=== PATIENT | male | born 1935 | race Caucasian/White ===

== ENCOUNTER 2019-06-07 07:37 | Day surgery (SDC) | payer MEDICARE, BC ==
[2019-06-07] VITALS (12 sets, daily range): BP systolic 96–140; BP diastolic 51–85; PULSE 52–67; TEMP 97.9
[~2019-06-07] VITALS: Ht 177.8 cm; Wt 88.0 kg
[~2019-06-07 07:37] MED LIST: ASPIRIN 32325 MG/TAB PO; AVODART 0.5MG0.5 MG PO; AVODART0.5 MG PO; CO ENZYME Q-1050 MG PO; GLUCOSAMINE & C1 CA1 PO; GLUCOSAMINE CHO1 CAP PO; LEVOTHROID0.125 MG PO; NITROQUICK0.4 MG SL; OMEGA 31000 MG PO; PLAVIX 75MG TAB75 MG PO; PUMPKIN SEED PO; SAW PALMETTO160 M1 PO; SIMVASTATIN20 MG PO; TOPROL XL 25MG25 MG PO; TOPROL XL25 MG PO; TYLENOL PM EXTR1 TA1 PO; VITAMIN C500 MG PO; ZESTRIL 5MG5 MG PO; ZINC25 MG PO; ZOCOR 20MG20 MG PO; ZOCOR 40MG40 MG PO
[2019-06-07 08:41] LABS: HEMOGLOBIN 11.3 g/dl (13.5-18.0); MEAN CELL VOLUME 91 fl (80.0-100.0); MEAN CORPUSCULAR HEMOGLOBIN 31 pg (27.0-31.0); MEAN CORPUSCULAR HGB CONC 34 g/dl (33.0-37.0); MEAN PLATELET VOLUME 9.8 fl (7.4-10.4); PLATELET COUNT 141 K/mm3 (130-400); REDCELL DISTRIBUTION WIDTH-CV 13.1 % (11.5-14.5)
[2019-06-07 08:43] LABS: HEMATOCRIT 32.9 % (42.0-52.0)
[2019-06-07 08:50] LABS: INR 1.1 (0.8-3.0); PROTHROMBIN TIME 13.1 SECONDS (9.7-12.8)
[2019-06-07 08:53] LABS: PARTIAL THROMBOPLASTIN TIME 31.8 SECONDS (26.0-37.0)
[2019-06-07] MEDS ORDERED: ASPIRIN E.C. 8181 MG PO (08:54)
[2019-06-07] MEDS ORDERED: SYNTHROID0.175 MG PO (08:55)
[2019-06-07] MEDS ORDERED: FISH OIL 1000MG1 CAP PO (08:56)
[2019-06-07 08:57] LABS: CALCIUM 8.3 mg/dL (8.4-10.2); CREATININE, serum 1.21 (0.66-1.25)
[2019-06-07] MEDS ORDERED: FLOMAX 0.40.4 MG/CAP PO (08:57)
[2019-06-07] MEDS ORDERED: VITAMIN D 1001000 IU PO (08:57)
[2019-06-07] MEDS ORDERED: ISORDIL TITRADO30 MG PO (08:58)
[2019-06-07] MEDS ORDERED: VITAMIN B12 1541 TAB PO (08:58)
--- NOTE | 2019-06-07 09:23 | NUR ---
SEE MERGE FOR MEDICATION ADMINISTATION TIMES AND INTRA/POST PROCEDURE SEDATION ASSESSMENTS.
--- NOTE | 2019-06-07 10:20 | NUR ---
pt recieved via bed to eu 12 from photo lab manager. Pt is alert and orientated x3, pt has TR band on with scan blood around TR band. call light in reach. family at bedside, takes water. no c/o
[2019-06-07] MEDS ORDERED: RANEXA 500MG T500 MG PO (10:54)
--- NOTE | 2019-06-07 11:05 | NUR ---
pt con't same, no c/o, uses urinal 300cc
--- NOTE | 2019-06-07 12:00 | NUR ---
pt sits up in bed and eats
--- NOTE | 2019-06-07 12:45 | NUR ---
band loosed 2cc, then in 10 min another 2cc, had oozing, 4cc replaced in band. will con't to monitor for 30 min. pt has no c/o, visits with Daughter
--- NOTE | 2019-06-07 13:30 | NUR ---
RELEASED TR BAND 2CC AT 1330, 2CC AT 1340 AND 2CC AT 1350, NO BLEEDING, AREA CLEANSED AND BANDAID ON WITH COBAN SUPPORT. PT UP TO B/R VOIDED, REVIEWED DISCHARGE INST. WITH PT AND DAUGHTER ON CARE OF SITE, ACTIVITY, FOLLOWUP APPT, NEW RX TO BE PICKED UP AT PHARMACY WITH VERBAL UNDERSTANDING.
--- NOTE | 2019-06-07 14:30 | NUR ---
[facility] INTACT, PT UP IN ROOM DRESSED, DISCHARGED VIA W/C TO CAR WITH DAUGHTER
== END 2019-06-07 14:30 | disposition home or self-care (01) ==
LOC: COL.CAR 07:37
PROVIDERS: Internal Medicine Cardiovascular Disease
DX: I25.10 Atherosclerotic heart disease of native coronary artery without angina pectoris (principal); R94.39 Abnormal result of other cardiovascular function study; I10 Essential (primary) hypertension; I25.2 Old myocardial infarction; E07.9 Disorder of thyroid, unspecified; E78.5 Hyperlipidemia, unspecified; Z85.038 Personal history of other malignant neoplasm of large intestine
CPT/HCPCS: J1644; J2250; J3010; Q9967

== ENCOUNTER → 2019-06-15 | Outpatient (CLI) | payer MEDICARE, BC ==
[~2019-06-15] MED LIST changes: +ASPIRIN E.C. 8181 MG PO; +FISH OIL 1000MG1 CAP PO; +FLOMAX 0.40.4 MG/CAP PO; +ISORDIL TITRADO30 MG PO; +RANEXA 500MG T500 MG PO; +SYNTHROID0.175 MG PO; +VITAMIN B12 1541 TAB PO; +VITAMIN D 1001000 IU PO
[2019-06-15 10:38] LABS: BASO % 0.2 % (0.0-2.0); EOS # 0.1 (0.0-0.7); EOS % 2.3 % (0-4.0); GRAN # 2.5 (1.4-6.5); GRAN % 47.7 % (42.2-75.2); HEMATOCRIT 38.5 % (42.0-52.0); LYMPH # 1.8 (1.2-3.4); MEAN CELL VOLUME 92 fl (80.0-100.0); MEAN CORPUSCULAR HEMOGLOBIN 31 pg (27.0-31.0); MEAN CORPUSCULAR HGB CONC 34 g/dl (33.0-37.0); MEAN PLATELET VOLUME 10.4 fl (7.4-10.4); MONO # 0.8 (0.1-0.6); MONO % 14.6 % (1.7-9.3); PLATELET COUNT 154 K/mm3 (130-400); RED BLOOD COUNT 4.18 M/mm3 (4.20-5.60); REDCELL DISTRIBUTION WIDTH-CV 13.1 % (11.5-14.5)
[2019-06-15 10:53] LABS: ALANINE AMINOTRANSFERASE 22 U/L (4-49); ALBUMIN 4.1 gm/dL (3.5-5.0); ALKALINE PHOSPHATASE 55 U/L (50-136); ANION GAP 11 mmol/L (7-16); AST,SGOT 26 U/L (15-37); BILIRUBIN,TOTAL 0.8 mg/dL (0.0-1.0); BLOOD UREA NITROGEN 23 mg/dL (9-20); CALCIUM 8.7 mg/dL (8.4-10.2); CARBON DIOXIDE 24 mmol/L (22-30); CHLORIDE 106 mmol/L (98-107); CREATININE, serum 1.48 (0.66-1.25); GLUCOSE 94 mg/dL (74-106); POTASSIUM 4.1 mmol/L (3.4-5.0); SODIUM 142 mmol/L (137-145); TOTAL PROTEIN 6.8 gm/dL (6.4-8.2)
[2019-06-15 10:54] LABS: C-REACTIVE PROTEIN < 0.5 mg/dL (0.0-0.9)
[2019-06-15 11:11] LABS: ERYTHROCYTE SEDIMENTATION RATE 4 mm/hr (0-30)
[2019-06-15 11:21] LABS: THYROID STIMULATING HORMONE 0.052 uIU/mL (0.465-4.680)
== END ==
LOC: ZCOL.LAB 10:21
PROVIDERS: Internal Medicine
DX: E03.9 Hypothyroidism, unspecified (principal); D50.0 Iron deficiency anemia secondary to blood loss (chronic)

== ENCOUNTER 2019-10-01 10:52 | Emergency (ER) | payer MEDICARE, BC ==
[~2019-10-01] VITALS: Ht 177.8 cm; Wt 86.4 kg
[~2019-10-01 10:52] MED LIST changes: +SYNTHROID0.125 MG/T PO; -SYNTHROID0.175 MG PO
[2019-10-01 11:07] VITALS: TEMP 97.9
[2019-10-01 11:45] LABS: BASO % 0.2 % (0.0-2.0); EOS # 0.1 (0.0-0.7); EOS % 1.3 % (0-4.0); GRAN # 2.7 (1.4-6.5); GRAN % 58.1 % (42.2-75.2); HEMOGLOBIN 12.2 g/dl (13.5-18.0); LYMPH # 1.3 (1.2-3.4); LYMPH % 26.9 % (20.0-51.0); MEAN CELL VOLUME 94 fl (80.0-100.0); MEAN CORPUSCULAR HEMOGLOBIN 32 pg (27.0-31.0); MEAN CORPUSCULAR HGB CONC 34 g/dl (33.0-37.0); MEAN PLATELET VOLUME 9.7 fl (7.4-10.4); MONO # 0.6 (0.1-0.6); MONO % 13.1 % (1.7-9.3); PLATELET COUNT 149 K/mm3 (130-400); RED BLOOD COUNT 3.84 M/mm3 (4.20-5.60); REDCELL DISTRIBUTION WIDTH-CV 12.8 % (11.5-14.5)
[2019-10-01 12:16] LABS: ERYTHROCYTE SEDIMENTATION RATE 6 mm/hr (0-30)
[2019-10-01 12:30] VITALS: BP 162/73; PULSE 68
== END 2019-10-01 12:30 | disposition home or self-care (01) ==
LOC: COL.ER 10:52
PROVIDERS: Physician Assistant
DX: M25.572 Pain in left ankle and joints of left foot (principal); E78.5 Hyperlipidemia, unspecified; Z79.02 Long term (current) use of antithrombotics/antiplatelets; Z90.49 Acquired absence of other specified parts of digestive tract; Z95.5 Presence of coronary angioplasty implant and graft

== ENCOUNTER → 2020-05-02 | Outpatient (CLI) | payer MEDICARE, BC | LOC: ZLAB.ENT 16:52 | DX: J34.0 Abscess, furuncle and carbuncle of nose (principal) ==

== ENCOUNTER → 2020-06-07 | Outpatient (CLI) | payer MEDICARE, BC ==
[2020-06-07 18:18] LABS: BASO % 0.3 % (0.0-2.0); EOS # 0.1 (0.0-0.7); EOS % 1.3 % (0-4.0); GRAN # 1.7 (1.4-6.5); GRAN % 42.5 % (42.2-75.2); HEMOGLOBIN 11.7 g/dl (13.5-18.0); LYMPH # 1.6 (1.2-3.4); LYMPH % 41.1 % (20.0-51.0); MEAN CELL VOLUME 94 fl (80.0-100.0); MEAN CORPUSCULAR HEMOGLOBIN 31 pg (27.0-31.0); MEAN CORPUSCULAR HGB CONC 33 g/dl (33.0-37.0); MEAN PLATELET VOLUME 10.4 fl (7.4-10.4); MONO # 0.6 (0.1-0.6); MONO % 14.5 % (1.7-9.3); PLATELET COUNT 157 K/mm3 (130-400); RED BLOOD COUNT 3.74 M/mm3 (4.20-5.60); REDCELL DISTRIBUTION WIDTH-CV 13.6 % (11.5-14.5)
[2020-06-07 18:20] LABS: HEMATOCRIT 35.2 % (42.0-52.0)
[2020-06-07 18:25] LABS: ALBUMIN 3.9 gm/dL (3.5-5.0); BILIRUBIN,TOTAL 0.5 mg/dL (0.0-1.0); CREATININE, serum 1.16 (0.66-1.25); POTASSIUM 3.7 mmol/L (3.4-5.0); TOTAL PROTEIN 6.5 gm/dL (6.4-8.2)
[2020-06-10 12:16] LABS: IRON,SERUM 74 ug/dL (35-150)
[2020-06-10 12:25] LABS: TOTAL IRON BINDING CAPACITY 289 ug/dL (261-462)
== END ==
LOC: ZCOL.LAB 17:56
PROVIDERS: Nurse Practitioner Family
DX: I10 Essential (primary) hypertension (principal)